=== PATIENT | male | born 1965 | race Two or more races ===

== ENCOUNTER 2018-05-15 13:53 | Outpatient (CLI) | payer OTHER | END 2018-05-15 14:00 | disposition home or self-care (01) | LOC: RAD 501 13:53 | DX: M25.511 Pain in right shoulder (principal) ==

== ENCOUNTER → 2018-12-08 | Outpatient (CLI) | payer OTHER | END | disposition home or self-care (01) | LOC: RAD 11:35 | DX: S99.812A Other specified injuries of left ankle, initial encounter (principal); S99.811A Other specified injuries of right ankle, initial encounter ==

== ENCOUNTER 2019-01-08 07:00 | Day surgery (SDC) | payer OTHER ==
[~2019-01-08 07:00] MED LIST: LEXAPRO20 MG PO; PRILOSEC OTC20 MG; PROVACHOL PO; SINGULAIR10 MG PO
== END 2019-01-08 17:10 | disposition home or self-care (01) ==
LOC: CIR.AMB 07:00
DX: M76.71 Peroneal tendinitis, right leg (principal)

== ENCOUNTER 2021-03-24 11:26 | Outpatient (CLI) | payer OTHER | END 2021-03-24 11:49 | disposition home or self-care (01) | LOC: MRI 11:26 | PROVIDERS: ATTEND Orthopaedic Surgery | DX: M48.061 Spinal stenosis, lumbar region without neurogenic claudication (principal); M54.59 Other low back pain | CPT/HCPCS: 72148 ==

== ENCOUNTER 2024-02-06 08:06 | Outpatient (CLI) | payer OTHER | END 2024-02-06 08:24 | disposition home or self-care (01) | LOC: SONOGRAMA 08:06 | PROVIDERS: ATTEND Physical Medicine & Rehabilitation Hospice and Palliative Medicine | DX: S86.912S Strain of unspecified muscle(s) and tendon(s) at lower leg level, left leg, sequela (principal) ==